=== PATIENT | male | born 1965 | race African-American/Black ===

== ENCOUNTER 2019-01-13 16:20 | Emergency (ER) | payer OTHER ==
[~2019-01-13] VITALS: Ht 185.4 cm; Wt 127.9 kg
[~2019-01-13 16:20] MED LIST: ATACAND4 MG; DIOVAN HCT 160-1 TAB; JANUMET 50-1,1 UDTAB
== END 2019-01-13 19:10 | disposition home or self-care (01) ==
LOC: ER 16:20
DX: M54.5 Low back pain (principal)

== ENCOUNTER 2021-06-04 14:46 | Emergency (ER) | payer OTHER ==
[~2021-06-04] VITALS: Ht 185.4 cm; Wt 129.7 kg
== END 2021-06-04 21:18 | disposition home or self-care (01) ==
LOC: ER 14:46
DX: R04.0 Epistaxis (principal); I10 Essential (primary) hypertension

== ENCOUNTER 2022-05-25 13:03 | Emergency (ER) | payer OTHER ==
[~2022-05-25] VITALS: Ht 185.4 cm; Wt 127.9 kg
[2022-05-25] MEDS ORDERED: ATORVASTATIN CA40 MG PO (13:15)
[2022-05-25] MEDS ORDERED: VALSARTAN320 MG PO (13:16)
[2022-05-25] MEDS ORDERED: GLIMEPIRIDE4 M1 PO (13:16)
[2022-05-25] MEDS ORDERED: FENOFIBRATE160 MG PO (13:16)
[2022-05-25] MEDS ORDERED: ADMELOG100 UNIT/1 (13:17)
[2022-05-25] MEDS ORDERED: AMLODIPINE BESYL5 MG PO (13:17)
== END 2022-05-25 19:25 | disposition home or self-care (01) ==
LOC: ER 13:03
DX: K52.89 Other specified noninfective gastroenteritis and colitis (principal); A05.9 Bacterial foodborne intoxication, unspecified; A08.8 Other specified intestinal infections; E11.9 Type 2 diabetes mellitus without complications

== ENCOUNTER 2022-11-06 08:32 | Emergency (ER) | payer OTHER ==
[~2022-11-06] VITALS: Ht 182.9 cm; Wt 117.0 kg
[~2022-11-06 08:32] MED LIST changes: +ADMELOG100 UNIT/1; +AMLODIPINE BESYL5 MG PO; +ATORVASTATIN CA40 MG PO; +FENOFIBRATE160 MG PO; +GLIMEPIRIDE4 M1 PO; +VALSARTAN320 MG PO
== END 2022-11-06 15:41 | disposition home or self-care (01) ==
LOC: ER 08:32
PROVIDERS: General Practice
DX: R10.84 Generalized abdominal pain (principal); E11.9 Type 2 diabetes mellitus without complications; Z79.4 Long term (current) use of insulin; Z79.84 Long term (current) use of oral hypoglycemic drugs; I10 Essential (primary) hypertension; Z20.822 Contact with and (suspected) exposure to COVID-19
CPT/HCPCS: 36415; 96365; 96366; 99283; J0744; J3490